=== PATIENT | male | born 1955 | race Caucasian/White ===

== ENCOUNTER 2018-09-05 09:01 | Outpatient (CLI) | payer MEDICARE ==
--- NOTE | 2018-09-05 10:35 | ULT ---
AORTIC DOPPLER ULTRASOUND: INDICATIONS: Ultrasound for abdominal aortic aneurysm screening. FINDINGS: There is limited visualization of the retroperitoneum due to persistent bowel gas. The visualized ao rta is nonaneurysmal, measuring up to approximately 1.9 cm proximally and 1.5 cm to 1.6 cm at the mid portion. The distal aorta measures approximately 1.3 to 1.4 cm in diameter. The imaged proximal il iac arteries are visualized, with mild ectasia, measuring approximately 1.3 cm on the left and 1.2 cm on the right. IMPRESSION: No sonographic evidence of abdominal aortic aneurysm. POS: [facility]
== END 2018-09-05 09:02 | disposition home or self-care (01) ==
LOC: BICULT 09:01
PROVIDERS: ATTEND Internal Medicine
DX: Z13.6 Encounter for screening for cardiovascular disorders (principal)
CPT/HCPCS: 76706

== ENCOUNTER 2018-11-16 07:50 | Outpatient (CLI) | payer MEDICARE ==
--- NOTE | 2018-11-16 10:17 | ULT ---
RIGHT UPPER QUADRANT GALLBLADDER ULTRASOUND: HISTORY: Right upper quadrant pain. COMPARISON: None. TECHNIQUE: Real-time, mendiola-scale, and color evaluation of the right upper quadrant of the abdomen is performed. FINDINGS: Diffuse increased hepatic echotexture. The liver measures 16 cm in length. The portal vein is patient with antegrade flow. The common bile duct is normal. The right kidney measures 11.4 x 5.8 x 5.5 cm without mass, hydronephrosis, or abnormal calcification . The gallbladder has been removed. IMPRESSION: Diffuse hepatic steatosis. POS: [facility]
== END 2018-11-16 07:51 | disposition home or self-care (01) ==
LOC: SCSULT 07:50
PROVIDERS: ATTEND Internal Medicine
DX: E80.6 Other disorders of bilirubin metabolism (principal); K76.0 Fatty (change of) liver, not elsewhere classified
CPT/HCPCS: 76705

== ENCOUNTER 2022-06-27 09:00 | Outpatient (CLI) | payer MEDICARE | END 2022-06-27 09:01 | disposition home or self-care (01) | LOC: BICULT 09:00 | PROVIDERS: ATTEND Internal Medicine | DX: R10.11 Right upper quadrant pain (principal); N28.1 Cyst of kidney, acquired; K76.0 Fatty (change of) liver, not elsewhere classified; Z90.49 Acquired absence of other specified parts of digestive tract | CPT/HCPCS: 76705 ==

== ENCOUNTER 2022-09-21 08:26 | Outpatient (CLI) | payer MEDICARE ==
[2022-09-21] MEDS ORDERED: Iopamidol 370 76% 100 ML VIAL ONE (11:49)
== END 2022-09-21 08:27 | disposition home or self-care (01) ==
LOC: BICCT 08:26
PROVIDERS: ATTEND Internal Medicine Gastroenterology
DX: K59.00 Constipation, unspecified (principal); R10.13 Epigastric pain; R10.33 Periumbilical pain; K21.9 Gastro-esophageal reflux disease without esophagitis; K57.30 Diverticulosis of large intestine without perforation or abscess without bleeding
CPT/HCPCS: 74177; Q9967

== ENCOUNTER 2025-10-01 07:56 | Outpatient (CLI) | payer OTHER | END 2025-10-01 07:57 | disposition home or self-care (01) | LOC: BICCT 07:56 | PROVIDERS: ATTEND Internal Medicine | DX: Z13.6 Encounter for screening for cardiovascular disorders (principal); E78.5 Hyperlipidemia, unspecified | CPT/HCPCS: 75571 ==